=== PATIENT | female | born 1985 | race Caucasian/White ===

== ENCOUNTER → 2018-05-05 16:11 | Outpatient (CLI) | payer OTHER, MEDICAID, SELFPAY ==
--- NOTE | 2018-05-05 16:18 | DI.RAD.S_ITS ---
PROCEDURE: XR LUMBAR SPINE MIN 4V INDICATIONS: Lumbosacral spondylosis TECHNIQUE: 5 views of the lumbar spine were acquired. COMPARISON: None. FINDINGS: Bones: 5 nonrib-bearing vertebrae are present. There is normal bony alignment. No vertebral body compression fractures. No suspicious bony lesions. Soft tissues: Overlying bowel gas pattern is normal. No suspicious soft tissue calcifications. Oblique images: No pars defects. No significant neuroforaminal narrowing. IMPRESSION: No compression fracture or spondylolisthesis. No pars defect or significant neuroforaminal narrowing. Dictated by: Carter Whitfield M.D. on 05/05/2018 at 16:51 Approved by: Carter Whitfield M.D. on 05/05/2018 at 16:51
== END ==
PROVIDERS: PCP Nurse Practitioner; Visit Provider Physical Medicine & Rehabilitation
DX: M47.27 Other spondylosis with radiculopathy, lumbosacral region (principal); R10.2 Pelvic and perineal pain; G89.29 Other chronic pain
CPT/HCPCS: 72110

== ENCOUNTER 2018-05-09 14:30 | Outpatient (RCR) | payer OTHER, MEDICAID, SELFPAY ==
--- NOTE | 2018-03-01 15:22 | PT.OIE ---
Current Diagnoses Pelvic and perineal pain (03/01/18) Past Surgical History History of third molar tooth extraction Status post delivery (03/18/15) Status post dilation and curettage Status post laparoscopy Status post laparotomy Provider Visit Care Team Role Provider Type Chato Nice MD Family Provider Physician Specialty: Wound Care Address: [address] [place] [address], [id number] Email: [email or web address] Mariluz Watts Attending Provider Non-Staff Specialty: Medical Address: [address] [place] [address], [place], [address] Email: Physical Therapy Initial Evaluation PT-OP-A Visit Information Start: 03/01/18 08:02 Freq: Status: Active Protocol: Document 03/01/18 11:15 AMB (Rec: 03/01/18 13:53 AMB [email or web address]) Out-Patient Physical Therapy Visit Information Visit Information Visit Type Initial Evaluation Visit Start Time 11:15 Visit Stop Time 12:00 Total Visit Minutes 45 Visit Number 1 Evaluation Information Evaluation Date 03/01/18 PT-OP-B Current Condition Start: 03/01/18 08:02 Freq: Status: Active Protocol: Document 03/01/18 11:15 AMB (Rec: 03/01/18 13:53 AMB [email or web address]) Current Condition History of Current Condition Onset Date January 16, 2018 Current Complaints R abdominal pain with nausea vomiting History of Current Condition 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 That night she has noticed a bruise starting to come up. The day after that she noted new onset constipation, so that she needs to splint to have a bowel movement despite stool softeners. She has seen multiple medical providers and per her report had an abdominal ultrasound which showed scar tissue. Prior Treatments and Tests , multiple laparoscopies due to endometriosis, with eventual vaginal hysterectomy. Personal Factors Other Personal Factors That May Effect fibromyalgia, hypothyroid, Therapy/Recovery back pain, multiple abdominal surgical history PT-OP-C Subjective Start: 03/01/18 08:02 Freq: Status: Active Protocol: Document 03/01/18 11:15 AMB (Rec: 03/01/18 13:53 AMB [email or web address]) Patient Questionnaires Pelvic Pain and Urgency/Frequency Patient Symptom Scale Pelvic Pain Score 16 OP-PT Pain Assessment Comments Pain Comments Chronic bilateral ischial tuberosity (sitting) pain, SI joint pain R>L. Acute onset R abdominal pain. Previous pain with intercourse but had previous pelvic floor PT and that helped. PT-OP-F Manual Assessment Start: 03/01/18 13:41 Freq: Status: Active Protocol: Document 03/01/18 11:15 AMB (Rec: 03/01/18 14:07 AMB [email or web address]) Manual Assessments Soft Tissue Assessment Soft Tissue Mobility Assessment Pt with adhesions over some of her laparoscopic scars and over her scar. PT-OP-I Pelvic Floor Start: 03/01/18 08:02 Freq: Status: Active Protocol: Document 03/01/18 11:15 AMB (Rec: 03/01/18 14:07 AMB [email or web address]) Pelvic Floor Assessment Comments Pelvic Floor Comments Pelvic floor assessment deferred due to pt bringing daughter to appointment. And having more concern about abdominal pain at this time. PT-OP-J Posture/Palpation/Skin Start: 03/01/18 13:41 Freq: Status: Active Protocol: Document 03/01/18 11:15 AMB (Rec: 03/01/18 14:07 AMB [email or web address]) Palpation Assessment Location One Palpation Details Tenderness with gentle stretching of R hip flexor, not as much on the left. PT-OP-M Strength Start: 03/01/18 13:41 Freq: Status: Active Protocol: Document 03/01/18 11:15 AMB (Rec: 03/01/18 14:07 AMB [email or web address]) Hip Strength Hip Manual Muscle Testing Right Flexion (L2) 3- Fair- Comments unable to comfortably extend R hip completey- unable to lift R hip into flexion due to pain/ weakness PT-OP-Q Treatments Start: 03/01/18 08:02 Freq: Status: Active Protocol: Document 03/01/18 11:15 AMB (Rec: 03/01/18 13:55 AMB [email or web address]) Therapeutic Exercises Supine Exercises 2 Supine Exercise Name heel slide 1 Supine Exercise Name trunk rotation Manual Therapy Treatment Soft Tissue Mobilization 1 Body Location abdomen Comments instruction in bowel massage and scar massage PT-OP-T Assessment and Plan Start: 03/01/18 08:02 Freq: Status: Active Protocol: Document 03/01/18 11:15 AMB (Rec: 03/01/18 14:22 AMB [email or web address]) Physical Therapy Assessment Rehab Potential Rehabilitation Potential Good Evaluation Complexity Number of Personal Factors/Comorbidities 3 or More Number of Body Systems Impaired 4 or More Clinical Presentation at Evaluation Evolving Impairments Impairments Pain ROM Soft Tissue Mobility Strength Goals Three Impairment Return to independent function Short Term Goal (STG) The patient will walk for 30 minutes with 3/10 abdominal pain or less. STG Duration 4 weeks Data Support Analyst Goal (LTG) The patient will lift her daughter into her lap with 3/ 10 abdominal pain or less. LTG Duration 8 weeks Two Impairment Bowel health Short Term Goal (STG) The patient will have a normal bowel movement without needing to vaginally splint. STG Duration 4 weeks One Impairment Pain Short Term Goal (STG) The patient will be independent with a core and hip HEP that does not increase her pain. STG Duration 4 weeks Usp Goal (LTG) The patient will be independent with a scar massage program. LTG Duration 8 weeks Assessment Summary Assessment The patient presents to physical therapy with her daughter and mother. She is fearful of her new onset abdominal pain. She was given ideas for managing her constipation and pain. She would benefit from physical therapy for this, as well as her chronic SI pain and given her complexity will likely benefit from further pelvic floor assessment. Physical Therapy Plan Frequency and Duration Frequency of Treatment 1x/Week Duration of Treatment 10 weeks Plan of Care Start Date 03/01/18 Plan of Care End Date 05/10/18 Therapeutic Interventions Therapeutic Interventions Aquatic Therapy Home Exercise Program Joint Mobilizations Manual Therapy Neuromuscular Re-education Self-Care/Home Management Soft Tissue Mobilization Taping Therapeutic Activities Therapeutic Exercises Modalities Biofeedback Cold Pack/Ice Massage Electric Stimulation Hot Packs Ultrasound Next Visit Focus/Plan Next Note Type Treatment Note Next Visit Plan Encourage gentle ROM, further assess SI/pelvic floor as able , encourage clear fluid intake , bowel massage.
--- NOTE | 2018-03-01 15:23 | PT.OPPOC ---
Current Diagnoses Pelvic and perineal pain (03/01/18) Provider Visit Care Team Role Provider Type Chato Nice MD Family Provider Physician Specialty: Wound Care Address: [address] [place] [address], [id number] Email: [email or web address] Mariluz Watts Attending Provider Non-Staff Specialty: Medical Address: [address], [place], [address] Email: Plan Of Care PT-OP-T Assessment and Plan Start: 03/01/18 08:02 Freq: Status: Active Protocol: Document 03/01/18 11:15 AMB (Rec: 03/01/18 14:22 AMB [email or web address]) Physical Therapy Assessment Rehab Potential Rehabilitation Potential Good Evaluation Complexity Number of Personal Factors/Comorbidities 3 or More Number of Body Systems Impaired 4 or More Clinical Presentation at Evaluation Evolving Impairments Impairments Pain ROM Soft Tissue Mobility Strength Goals Three Impairment Return to independent function Short Term Goal (STG) The patient will walk for 30 minutes with 3/10 abdominal pain or less. STG Duration 4 weeks Prison Goal (LTG) The patient will lift her daughter into her lap with 3/ 10 abdominal pain or less. LTG Duration 8 weeks Two Impairment Bowel health Short Term Goal (STG) The patient will have a normal bowel movement without needing to vaginally splint. STG Duration 4 weeks One Impairment Pain Short Term Goal (STG) The patient will be independent with a core and hip HEP that does not increase her pain. STG Duration 4 weeks Tennis Director Goal (LTG) The patient will be independent with a scar massage program. LTG Duration 8 weeks Assessment Summary Assessment The patient presents to physical therapy with her daughter and mother. She is fearful of her new onset abdominal pain. She was given ideas for managing her constipation and pain. She would benefit from physical therapy for this, as well as her chronic SI pain and given her complexity will likely benefit from further pelvic floor assessment. Physical Therapy Plan Frequency and Duration Frequency of Treatment 1x/Week Duration of Treatment 10 weeks Plan of Care Start Date 03/01/18 Plan of Care End Date 05/10/18 Therapeutic Interventions Therapeutic Interventions Aquatic Therapy Home Exercise Program Joint Mobilizations Manual Therapy Neuromuscular Re-education Self-Care/Home Management Soft Tissue Mobilization Taping Therapeutic Activities Therapeutic Exercises Modalities Biofeedback Cold Pack/Ice Massage Electric Stimulation Hot Packs Ultrasound Next Visit Focus/Plan Next Note Type Treatment Note Next Visit Plan Encourage gentle ROM, further assess SI/pelvic floor as able , encourage clear fluid intake , bowel massage. Plan of Care Dates Plan of Care Start Date 03/01/18 Plan of Care End Date 05/10/18 Please Sign and Return: I have reviewed this Plan of Care and certify that the skilled therapy services above are required to meet the patient?s needs. Physician Signature Date Printed Name and Credentials Clinical Instructor Signature Printed Name and Credentials
--- NOTE | 2018-03-29 16:00 | PT.OTN ---
Current Diagnoses Pelvic and perineal pain (03/29/18) Physical Therapy Treatment Note PT-OP-A Visit Information Start: 03/01/18 08:02 Freq: Status: Active Protocol: Document 03/29/18 14:30 AMB (Rec: 03/29/18 14:42 AMB [id number]) Out-Patient Physical Therapy Visit Information Visit Information Visit Type Treatment Note Visit Start Time 14:30 Visit Stop Time 15:15 Total Visit Minutes 45 Visit Number 2 PT-OP-B Current Condition Start: 03/01/18 08:02 Freq: Status: Active Protocol: Document 03/01/18 11:15 AMB (Rec: 03/01/18 13:53 AMB [email or web address]) Current Condition History of Current Condition Onset Date January 16, 2018 Current Complaints R abdominal pain with nausea vomiting History of Current Condition 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 That night she has noticed a bruise starting to come up. The day after that she noted new onset constipation, so that she needs to splint to have a bowel movement despite stool softeners. She has seen multiple medical providers and per her report had an abdominal ultrasound which showed scar tissue. Prior Treatments and Tests , multiple laparoscopies due to endometriosis, with eventual vaginal hysterectomy. Personal Factors Other Personal Factors That May Effect fibromyalgia, hypothyroid, Therapy/Recovery back pain, multiple abdominal surgical history PT-OP-C Subjective Start: 03/01/18 08:02 Freq: Status: Active Protocol: Document 03/29/18 14:30 AMB (Rec: 03/29/18 14:42 AMB [id number]) OP-PT Subjective Patient Comments Patient Comments Pt feels like her symptoms are worsening, she has seen 6 surgeons in the last month. PT-OP-F Manual Assessment Start: 03/01/18 13:41 Freq: Status: Active Protocol: Document 03/01/18 11:15 AMB (Rec: 03/01/18 14:07 AMB [email or web address]) Manual Assessments Soft Tissue Assessment Soft Tissue Mobility Assessment Pt with adhesions over some of her laparoscopic scars and over her scar. PT-OP-I Pelvic Floor Start: 03/01/18 08:02 Freq: Status: Active Protocol: Document 03/01/18 11:15 AMB (Rec: 03/01/18 14:07 AMB [email or web address]) Pelvic Floor Assessment Comments Pelvic Floor Comments Pelvic floor assessment deferred due to pt bringing daughter to appointment. And having more concern about abdominal pain at this time. PT-OP-J Posture/Palpation/Skin Start: 03/01/18 13:41 Freq: Status: Active Protocol: Document 03/01/18 11:15 AMB (Rec: 03/01/18 14:07 AMB [email or web address]) Palpation Assessment Location One Palpation Details Tenderness with gentle stretching of R hip flexor, not as much on the left. PT-OP-M Strength Start: 03/01/18 13:41 Freq: Status: Active Protocol: Document 03/01/18 11:15 AMB (Rec: 03/01/18 14:07 AMB [email or web address]) Hip Strength Hip Manual Muscle Testing Right Flexion (L2) 3- Fair- Comments unable to comfortably extend R hip completey- unable to lift R hip into flexion due to pain/ weakness PT-OP-Q Treatments Start: 03/01/18 08:02 Freq: Status: Active Protocol: Document 03/29/18 14:30 AMB (Rec: 03/30/18 07:47 AMB [email or web address]) Manual Therapy Treatment Soft Tissue Mobilization 1 Body Location abdomen Comments L laporoscopic scar massage, L abdominal wall MFR Self-Care/Home Management Treatment Activities Self-Care/Home Management Activities Pt educated in foods to to avoid and promote in her diet to relieve constipation. PT-OP-T Assessment and Plan Start: 03/01/18 08:02 Freq: Status: Active Protocol: Document 03/29/18 14:30 AMB (Rec: 03/30/18 07:47 AMB [email or web address]) Physical Therapy Assessment Assessment Summary Assessment Pt feels that her pain is getting worse. She is taking opioid pain medications but does not feel that these are playing a role in her constipation. Educated in food choice and massage for abdominal pain. Physical Therapy Plan Next Visit Focus/Plan Next Note Type Treatment Note Next Visit Plan Assess how patient tolerated manual. Add to HEP.
--- NOTE | 2018-05-03 14:30 | PT.OTN ---
Current Diagnoses Pelvic and perineal pain (05/03/18) Physical Therapy Treatment Note PT-OP-A Visit Information Start: 03/01/18 08:02 Freq: Status: Active Protocol: Document 05/03/18 14:30 AMB (Rec: 05/03/18 14:42 AMB [id number]) Out-Patient Physical Therapy Visit Information Visit Information Visit Type Treatment Note Visit Start Time 14:30 Visit Stop Time 15:15 Total Visit Minutes 45 Visit Number 3 PT-OP-B Current Condition Start: 03/01/18 08:02 Freq: Status: Active Protocol: Document 03/01/18 11:15 AMB (Rec: 03/01/18 13:53 AMB [email or web address]) Current Condition History of Current Condition Onset Date January 16, 2018 Current Complaints R abdominal pain with nausea vomiting History of Current Condition 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 That night she has noticed a bruise starting to come up. The day after that she noted new onset constipation, so that she needs to splint to have a bowel movement despite stool softeners. She has seen multiple medical providers and per her report had an abdominal ultrasound which showed scar tissue. Prior Treatments and Tests , multiple laparoscopies due to endometriosis, with eventual vaginal hysterectomy. Personal Factors Other Personal Factors That May Effect fibromyalgia, hypothyroid, Therapy/Recovery back pain, multiple abdominal surgical history PT-OP-C Subjective Start: 03/01/18 08:02 Freq: Status: Active Protocol: Document 05/03/18 14:30 AMB (Rec: 05/03/18 14:42 AMB [id number]) OP-PT Subjective Patient Comments Patient Comments Pt is waiting for results to see if she has Chrone's. Has been driving a lot which has been increasing pain. PT-OP-F Manual Assessment Start: 03/01/18 13:41 Freq: Status: Active Protocol: Document 03/01/18 11:15 AMB (Rec: 03/01/18 14:07 AMB [email or web address]) Manual Assessments Soft Tissue Assessment Soft Tissue Mobility Assessment Pt with adhesions over some of her laparoscopic scars and over her scar. PT-OP-I Pelvic Floor Start: 03/01/18 08:02 Freq: Status: Active Protocol: Document 03/01/18 11:15 AMB (Rec: 12/19/18 14:07 AMB [email or web address]) Pelvic Floor Assessment Comments Pelvic Floor Comments Pelvic floor assessment deferred due to pt bringing daughter to appointment. And having more concern about abdominal pain at this time. PT-OP-J Posture/Palpation/Skin Start: 03/01/18 13:41 Freq: Status: Active Protocol: Document 03/01/18 11:15 AMB (Rec: 03/01/18 14:07 AMB [email or web address]) Palpation Assessment Location One Palpation Details Tenderness with gentle stretching of R hip flexor, not as much on the left. PT-OP-M Strength Start: 03/01/18 13:41 Freq: Status: Active Protocol: Document 03/01/18 11:15 AMB (Rec: 03/01/18 14:07 AMB [email or web address]) Hip Strength Hip Manual Muscle Testing Right Flexion (L2) 3- Fair- Comments unable to comfortably extend R hip completey- unable to lift R hip into flexion due to pain/ weakness PT-OP-Q Treatments Start: 03/01/18 08:02 Freq: Status: Active Protocol: Document 05/03/18 14:30 AMB (Rec: 05/04/18 07:44 AMB [email or web address]) Therapeutic Exercises Supine Exercises 2 Supine Exercise Name heel slide 1 Supine Exercise Name trunk rotation Other Exercises 3 Other Exercise Name george pose 2 Other Exercise Name cat cow Comments modified ROM to avoid excessive lordosis 1 Other Exercise Name quadruped LE ext Reps/Minutes 2x5 Manual Therapy Treatment Soft Tissue Mobilization 2 Body Location hip flexors B Mobilization Type Myofascial Release Sustained Pressure Intensity/Depth Moderate Body Position Hooklying Manual Techniques 1 Type MET to correct R anterior rotation PT-OP-T Assessment and Plan Start: 03/01/18 08:02 Freq: Status: Active Protocol: Document 05/03/18 14:30 AMB (Rec: 05/04/18 07:44 AMB [email or web address]) Physical Therapy Assessment Assessment Summary Assessment R hip flexor continues to be tight. Pt felt relief with SI belt and may benefit from one , although would recommend to help her be more active, not for 24 hour use. Pt continues to be looking at Crohn's diagnosis. Physical Therapy Plan Next Visit Focus/Plan Next Note Type Progress Note Next Visit Plan Assess how patient tolerated manual. Add to HEP.
--- NOTE | 2018-05-09 16:10 | PT.OTN ---
Current Diagnoses Sacroiliitis, not elsewhere classified (05/09/18) Pelvic and perineal pain (05/09/18) Physical Therapy Treatment Note PT-OP-A Visit Information Start: 03/01/18 08:02 Freq: Status: Active Protocol: Document 05/09/18 14:30 AMB (Rec: 05/09/18 14:49 AMB [id number]) Out-Patient Physical Therapy Visit Information Visit Information Visit Type Treatment Note Visit Start Time 14:30 Visit Stop Time 15:15 Total Visit Minutes 45 Visit Number 4 PT-OP-B Current Condition Start: 03/01/18 08:02 Freq: Status: Active Protocol: Document 03/01/18 11:15 AMB (Rec: 03/01/18 13:53 AMB [email or web address]) Current Condition History of Current Condition Onset Date January 16, 2018 Current Complaints R abdominal pain with nausea vomiting History of Current Condition 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 That night she has noticed a bruise starting to come up. The day after that she noted new onset constipation, so that she needs to splint to have a bowel movement despite stool softeners. She has seen multiple medical providers and per her report had an abdominal ultrasound which showed scar tissue. Prior Treatments and Tests , multiple laparoscopies due to endometriosis, with eventual vaginal hysterectomy. 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 PT-OP-F Manual Assessment Start: 03/01/18 13:41 Freq: Status: Active Protocol: Document 03/01/18 11:15 AMB (Rec: 03/01/18 14:07 AMB [email or web address]) Manual Assessments Soft Tissue Assessment Soft Tissue Mobility Assessment Pt with adhesions over some of her laparoscopic scars and over her scar. PT-OP-I Pelvic Floor Start: 03/01/18 08:02 Freq: Status: Active Protocol: Document 03/01/18 11:15 AMB (Rec: 03/01/18 14:07 AMB [email or web address]) Pelvic Floor Assessment Comments Pelvic Floor Comments Pelvic floor assessment deferred due to pt bringing daughter to appointment. And having more concern about abdominal pain at this time. PT-OP-J Posture/Palpation/Skin Start: 03/01/18 13:41 Freq: Status: Active Protocol: Document 03/01/18 11:15 AMB (Rec: 03/01/18 14:07 AMB [email or web address]) Palpation Assessment Location One Palpation Details Tenderness with gentle stretching of R hip flexor, not as much on the left. PT-OP-M Strength Start: 03/01/18 13:41 Freq: Status: Active Protocol: Document 03/01/18 11:15 AMB (Rec: 03/01/18 14:07 AMB [email or web address]) Hip Strength Hip Manual Muscle Testing Right Flexion (L2) 3- Fair- Comments unable to comfortably extend R hip completey- unable to lift R hip into flexion due to pain/ weakness PT-OP-Q Treatments Start: 03/01/18 08:02 Freq: Status: Active Protocol: Document 05/09/18 14:30 AMB (Rec: 05/09/18 16:10 AMB [email or web address]) Therapeutic Exercises Supine Exercises 5 Supine Exercise Name hamstring stretch Reps/Minutes 30x2 4 Supine Exercise Name supine march Reps/Minutes 2x10 3 Supine Exercise Name hip flexor stretch Reps/Minutes 30x2 2 Supine Exercise Name heel slide 1 Supine Exercise Name trunk rotation Other Exercises 3 Other Exercise Name george pose 2 Other Exercise Name cat cow Comments modified ROM to avoid excessive lordosis 1 Other Exercise Name quadruped LE ext Reps/Minutes 2x5 Manual Therapy Treatment Soft Tissue Mobilization 2 Body Location hip flexors B Mobilization Type Myofascial Release Sustained Pressure Intensity/Depth Moderate Body Position Hooklying PT-OP-T Assessment and Plan Start: 03/01/18 08:02 Freq: Status: Active Protocol: Document 05/09/18 14:30 AMB (Rec: 05/09/18 16:10 AMB [email or web address]) Physical Therapy Assessment Goals Three Impairment Return to independent function Short Term Goal (STG) The patient will walk for 30 minutes with 3/10 abdominal pain or less. STG Duration 4 weeks Station Gateman Goal (LTG) The patient will lift her daughter into her lap with 3/ 10 abdominal pain or less. LTG Duration 8 weeks Two Impairment Bowel health Short Term Goal (STG) The patient will have a normal bowel movement without needing to vaginally splint. STG Duration 4 weeks One Impairment Pain Short Term Goal (STG) The patient will be independent with a core and hip HEP that does not increase her pain. STG Duration 4 weeks Station Gateman Goal (LTG) The patient will be independent with a scar massage program. LTG Duration MET Assessment Summary Assessment Annabel appears to be at a better place with her pain, despite the recent passing of her step dad. We are working more on her chronic pelvic pain now, which is what she was originally sent for, but her acute pain on the right was a big issue and is now better managed. Pt continues to have pain/tightness at right hip flexor. Physical Therapy Plan Frequency and Duration Frequency of Treatment 1x/Week Duration of Treatment 10 weeks Plan of Care Start Date 05/09/18 Plan of Care End Date 07/18/18 Therapeutic Interventions Therapeutic Interventions Aquatic Therapy Home Exercise Program Joint Mobilizations Manual Therapy Neuromuscular Re-education Self-Care/Home Management Soft Tissue Mobilization Taping Therapeutic Activities Therapeutic Exercises Modalities Biofeedback Cold Pack/Ice Massage Electric Stimulation Hot Packs Ultrasound Next Visit Focus/Plan Next Note Type Treatment Note Next Visit Plan Progress HEP with more stabilization, follow up on SI belt.
--- NOTE | 2018-05-09 16:10 | PT.OPPOC ---
Current Diagnoses Sacroiliitis, not elsewhere classified (05/09/18) Pelvic and perineal pain (05/09/18) Provider Visit Care Team Role Provider Type Chato Nice MD Family Provider Physician Specialty: Wound Care Address: [address] [place] [address], [id number] Email: [email or web address] Attending Provider Non-Staff Specialty: Medical Address: [address], [place], [address] Email: Plan Of Care PT-OP-T Assessment and Plan Start: 03/01/18 08:02 Freq: Status: Active Protocol: Document 05/09/18 14:30 AMB (Rec: 05/09/18 16:10 AMB [email or web address]) Physical Therapy Assessment Goals Three Impairment Return to independent function Short Term Goal (STG) The patient will walk for 30 minutes with 3/10 abdominal pain or less. STG Duration 4 weeks Mcc Goal (LTG) The patient will lift her daughter into her lap with 3/ 10 abdominal pain or less. LTG Duration 8 weeks Two Impairment Bowel health Short Term Goal (STG) The patient will have a normal bowel movement without needing to vaginally splint. STG Duration 4 weeks One Impairment Pain Short Term Goal (STG) The patient will be independent with a core and hip HEP that does not increase her pain. STG Duration 4 weeks Bulk Sealer Goal (LTG) The patient will be independent with a scar massage program. LTG Duration MET Assessment Summary Assessment Annabel appears to be at a better place with her pain, despite the recent passing of her step dad. We are working more on her chronic pelvic pain now, which is what she was originally sent for, but her acute pain on the right was a big issue and is now better managed. Pt continues to have pain/tightness at right hip flexor. Physical Therapy Plan Frequency and Duration Frequency of Treatment 1x/Week Duration of Treatment 10 weeks Plan of Care Start Date 05/09/18 Plan of Care End Date 07/18/18 Therapeutic Interventions Therapeutic Interventions Aquatic Therapy Home Exercise Program Joint Mobilizations Manual Therapy Neuromuscular Re-education Self-Care/Home Management Soft Tissue Mobilization Taping Therapeutic Activities Therapeutic Exercises Modalities Biofeedback Cold Pack/Ice Massage Electric Stimulation Hot Packs Ultrasound Next Visit Focus/Plan Next Note Type Treatment Note Next Visit Plan Progress HEP with more stabilization, follow up on SI belt. Plan of Care Dates Plan of Care Start Date 05/09/18 Plan of Care End Date 07/18/18 Please Sign and Return: I have reviewed this Plan of Care and certify that the skilled therapy services above are required to meet the patient?s needs. Physician Signature Date Printed Name and Credentials Clinical Instructor Signature Printed Name and Credentials
--- NOTE | 2018-06-20 11:44 | PT.OPDS ---
Current Diagnoses Sacroiliitis, not elsewhere classified (05/09/18) Pelvic and perineal pain (05/09/18) Provider Visit Care Team Role Provider Type Chato Nice MD Family Provider Physician Specialty: Wound Care Address: [address] [place] [address], [id number] Email: [email or web address] Attending Provider Non-Staff Specialty: Medical Address: [address] [place] [address], [place], [address] Email: Visit Number Visit Number 4 Discharge Summary PT-OP-B Current Condition Start: 03/01/18 08:02 Freq: Status: Active Protocol: Document 03/01/18 11:15 AMB (Rec: 03/01/18 13:53 AMB [email or web address]) Current Condition History of Current Condition Onset Date January 16, 2018 Current Complaints R abdominal pain with nausea vomiting History of Current Condition 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 That night she has noticed a bruise starting to come up. The day after that she noted new onset constipation, so that she needs to splint to have a bowel movement despite stool softeners. She has seen multiple medical providers and per her report had an abdominal ultrasound which showed scar tissue. Prior Treatments and Tests , multiple laparoscopies due to endometriosis, with eventual vaginal hysterectomy. 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 PT-OP-F Manual Assessment Start: 03/01/18 13:41 Freq: Status: Active Protocol: Document 03/01/18 11:15 AMB (Rec: 03/01/18 14:07 AMB [email or web address]) Manual Assessments Soft Tissue Assessment Soft Tissue Mobility Assessment Pt with adhesions over some of her laparoscopic scars and over her scar. PT-OP-I Pelvic Floor Start: 12/19/18 08:02 Freq: Status: Active Protocol: Document 03/01/18 11:15 AMB (Rec: 03/01/18 14:07 AMB [email or web address]) Pelvic Floor Assessment Comments Pelvic Floor Comments Pelvic floor assessment deferred due to pt bringing daughter to appointment. And having more concern about abdominal pain at this time. PT-OP-J Posture/Palpation/Skin Start: 03/01/18 13:41 Freq: Status: Active Protocol: Document 03/01/18 11:15 AMB (Rec: 03/01/18 14:07 AMB [email or web address]) Palpation Assessment Location One Palpation Details Tenderness with gentle stretching of R hip flexor, not as much on the left. PT-OP-M Strength Start: 03/01/18 13:41 Freq: Status: Active Protocol: Document 03/01/18 11:15 AMB (Rec: 03/01/18 14:07 AMB [email or web address]) Hip Strength Hip Manual Muscle Testing Right Flexion (L2) 3- Fair- Comments unable to comfortably extend R hip completey- unable to lift R hip into flexion due to pain/ weakness PT-OP-T Assessment and Plan Start: 03/01/18 08:02 Freq: Status: Active Protocol: Document 06/20/18 11:38 AMB (Rec: 06/20/18 11:43 AMB [id number]) Physical Therapy Assessment Goals Three Impairment Return to independent function Short Term Goal (STG) The patient will walk for 30 minutes with 3/10 abdominal pain or less. STG Duration not assessed Parcel Post Order Clerk Goal (LTG) The patient will lift her daughter into her lap with 3/ 10 abdominal pain or less. LTG Duration not assessed Two Impairment Bowel health Short Term Goal (STG) The patient will have a normal bowel movement without needing to vaginally splint. STG Duration not assessed One Impairment Pain Short Term Goal (STG) The patient will be independent with a core and hip HEP that does not increase her pain. STG Duration MET Par[employer] Post Order Clerk Goal (LTG) The patient will be independent with a scar massage program. LTG Duration MET Assessment Summary Assessment Annabel attended physical therapy for 4 visits and canceled 9 visits. She canceled her last appointment and has not called back to reschedule. Unfortunately she always brought her 3 year old daughter to her appointments, so a thorough internal exam was never accomplished. At her last visit, her pain levels had appeared to improve from eval, but she continued to have more right sided tightness in her anterior hip. She has not been seen in over a month, therefore she is discharged at this time. Physical Therapy Plan Discharge Physical Therapy Discharge Reasons No Longer Attending PT
== END 2018-06-28 10:56 | disposition home or self-care (01) ==
LOC: PHYS 14:30
PROVIDERS: Family Provider Internal Medicine; Visit Provider Nurse Practitioner Family
DX: R10.2 Pelvic and perineal pain (principal); M46.1 Sacroiliitis, not elsewhere classified
CPT/HCPCS: 97110; 97140; 97162; 97535